=== PATIENT | male | born 1965 | race Caucasian/White ===

== ENCOUNTER → 2018-04-15 14:50 | Outpatient (CLI) | payer OTHER, SELFPAY ==
--- NOTE | 2018-04-15 14:56 | RAD_ITS ---
STUDY: X-RAY - ABDOMEN/PELVIS REASON FOR EXAM: Male, 53 years old. Left upper quadrant pain radiating to back TECHNIQUE: Two AP supine views of the abdomen and pelvis. COMPARISON: None. FINDINGS: Normal visualized lung bases. There is an unremarkable bowel gas pattern. There is no demonstrated free abdominal air. The visualized liver, spleen and kidneys are grossly normal in size and morphology. Normal soft tissue structures. Normal visualized osseous structures. RAD/Abdomen Single View IMPRESSION: Normal x-ray examination of the abdomen and pelvis. Electronically Signed: Jeremiah Restrepo MD at 22:58 EDT , Service support ,
[2018-04-15 17:48] LABS: Absolute Lymphocyte Count 2.17 X10^3/ul (0.83-4.51); Absolute Neutrophil Count 3.2 X10^3/uL (2.0-7.7); Basophil# 0.03 X10^3/uL; Basophil% 0.5 % (0-1); Eosinophil# 0.08 X10^3/uL; Eosinophils% 1.4 % (0-5); Hematocrit 43.5 % (40-54); Lymphocyte # 2.17 X10^3/ul (4.0); Lymphocyte % 36.7 % (19-41); Mean Corp Hgb Conc 34.5 g/gl (32-36); Mean Corpuscular Hgb 30.3 pg (27.0-32.0); Mean Corpuscular Volume 87.9 fL (80-94); Monocyte# 0.46 X10^3/uL; Monocyte% 7.8 % (0-10); Neutrophil # 3.16 X10^3/uL (2.7-7.7); Neutrophil % 53.3 % (47-70); Platelet Count 274 K/mm3 (150-450); RBC Distribution Width CV 12.8 % (11.6-14.6); RBC Distribution Width SD 41.1 fl (35.1-43.9); Red Blood Count 4.95 M/mm3 (4.6-6.2); White Blood Count 5.9 K/mm3 (4.4-11.0)
[2018-04-15 17:50] LABS: POSITIVE COUNT NO; POSITIVE DIFFERENTIAL NO; POSITIVE MORPHOLOGY NO
[2018-04-15 17:54] LABS: Anion Gap 8 (5-15); BUN 15 mg/dL (7-18); BUN/Creat Ratio 14.4 RATIO (10-20); Calcium,Total 9.1 mg/dL (8.5-10.1); Chloride 104 mmol/L (98-107); Creatinine, Serum 1.04 mg/dL (0.70-1.30); EST Glomerular Filtration Rate 79 mL/min (>60); Est Glom Filt Rate - Afr Amer 95 mL/min (>60); Glucose 92 mg/dL (74-106); Potassium 4.2 mmol/L (3.5-5.1); Sodium Level 141 mmol/L (136-145); T4 Free Direct 1.12 ng/dL (0.76-1.46); Thyroid Stim Hormone (TSH) 8.39 uIU/mL (0.358-3.74)
[2018-04-15 18:05] LABS: T3 Total - Triiodothyronine 1.23 ng/mL (0.6-1.81)
[2018-04-18 16:41] LABS: Thyroid Peroxidase AB > 600 IU/mL (0-34)
== END ==
PROVIDERS: Family Provider Family Medicine; PCP Family Medicine; Visit Provider Family Medicine
DX: R10.9 Unspecified abdominal pain (principal); R79.89 Other specified abnormal findings of blood chemistry
CPT/HCPCS: 36415; 74018; 80048; 84439; 84443; 84480; 85025; 86376

== ENCOUNTER → 2018-06-14 08:05 | Outpatient (CLI) | payer OTHER, SELFPAY ==
[2018-06-14 08:46] LABS: T4 Free Direct 1.42 ng/dL (0.76-1.46); Thyroid Stim Hormone (TSH) 1.27 uIU/mL (0.358-3.74)
== END ==
PROVIDERS: Family Provider Family Medicine; PCP Family Medicine; Visit Provider Family Medicine
DX: E03.9 Hypothyroidism, unspecified (principal)
CPT/HCPCS: 84439; 84443

== ENCOUNTER → 2020-03-30 15:07 | Outpatient (CLI) | payer OTHER, SELFPAY ==
--- NOTE | 2020-03-30 15:11 | RAD_ITS ---
STUDY: X-RAY - SACRUM/COCCYX REASON FOR EXAM: Male, 55 years old. pain in the tailbone, no injury TECHNIQUE: 3 view(s) of the sacrum and coccyx were obtained. COMPARISON: None. FINDINGS: Normal bilateral sacroiliac joints. Normal visualized sacral ala and fused sacral bodies. Normal sacrococcygeal junction with a normal angulation. Normal coccygeal segments. Pelvic phleboliths. Degenerative hip changes. RAD/Sacrum-Coccyx min 2 Views IMPRESSION: No sacrococcygeal abnormality is visible. Electronically Signed: Dharmesh Laboy MD at 18:14 EDT Tel , Service support ,
== END ==
PROVIDERS: PCP Family Medicine; Referring Provider Family Medicine; Visit Provider Family Medicine
DX: M53.3 Sacrococcygeal disorders, not elsewhere classified (principal)
CPT/HCPCS: 72220

== ENCOUNTER → 2020-06-18 10:13 | Outpatient (CLI) | payer OTHER, SELFPAY ==
[2020-06-18 12:34] LABS: Hemoglobin A1c 5.9 % (3.8-5.6)
[2020-06-24 22:09] LABS: HLA B27 Negative (.)
== END ==
PROVIDERS: PCP Family Medicine; Visit Provider Family Medicine
DX: M54.5 Low back pain (principal); R73.01 Impaired fasting glucose
CPT/HCPCS: 36415; 81374; 83036

== ENCOUNTER → 2020-07-14 15:22 | Outpatient (CLI) | payer OTHER, SELFPAY ==
[2020-07-01 14:12] VITALS: BMI 31.3
--- NOTE | 2020-07-14 15:22 | MRI_ITS ---
HISTORY: nontraumatic coccydynia ADDITIONAL HISTORY: None provided. COMPARISON: Sacrum coccyx radiographs 03/30/2020. TECHNIQUE: Multiplanar, multisequence MRI of the pelvis without contrast FINDINGS: BLADDER: Not well distended with mildly prominent wall with some trabeculation. REPRODUCTIVE ORGANS: Mild prostate enlargement measuring 3.6 x 4.8 x 3.9 cm. Seminal vesicle cysts. IMAGED GI TRACT: Colonic diverticulosis. ABDOMINAL WALL: Unremarkable. LYMPH NODES: No pathologic appearing adenopathy. FREE FLUID: None. SKELETON AND SOFT TISSUES: No focal bone lesion. Fatty marrow replacement noted in the lower sacrum and coccyx. No evidence of fracture. Degenerative changes in the visible spine; refer to lumbar spine MRI report. Unremarkable sacroiliac joints. MRI/Pelvis (Routine) IMPRESSION: No pelvic abnormality detected to explain the patient's symptoms. Incidental findings as detailed. at 0151 Reported and signed by: Lizbeth Zaragoza MD Electronically Signed: Lizbeth Zaragoza MD at 1:51 EDT Tel , Service support ,
--- NOTE | 2020-07-14 15:22 | MRI_ITS ---
STUDY: MRI LUMBAR SPINE WITHOUT CONTRAST REASON FOR EXAM: Male, 55 years old. back pain, bilat leg pain, coccyx pain TECHNIQUE: Standardized fat and water weighted pulse sequences were obtained in the sagittal and axial planes. COMPARISON: None FINDINGS: T12-L1: Normal endplates. Normal disc height, hydration and morphology. Normal bilateral facet joints. Normal central canal and bilateral lateral recesses. Normal bilateral intervertebral neural foramina. Normal lumbar lordosis. There is no substantial scoliosis. Normal conus medullaris that terminates at the L1-2 level. L5 hemangioma. L1-2: Normal endplates. Normal disc height, hydration and morphology. Normal bilateral facet joints. Normal central canal and bilateral lateral recesses. Normal bilateral intervertebral neural foramina. L2-3: Normal endplates. Normal disc height, hydration and morphology. Normal bilateral facet joints. Normal central canal and bilateral lateral recesses. Normal bilateral intervertebral neural foramina. L3-4: Bulging annulus with mild right foraminal stenosis. L4-5: Bulging annulus and left foraminal annular fissure with moderate left and mild right foraminal stenoses. L5-S1: Bulging annulus, central disc protrusion and bilateral facet hypertrophy without compressive sequelae. Normal visualized sacral ala. Normal visualized paraspinous soft tissue structures. MRI/Spine Lumbar (Routine) IMPRESSION: Multilevel degenerative disease as described. Moderate left foraminal stenosis at the L4-5 level. Electronically Signed: Dharmesh Laboy MD at 17:29 EDT Tel , Service support ,
== END ==
PROVIDERS: PCP Family Medicine; Referring Provider Physician Assistant; Visit Provider Physician Assistant
DX: M53.3 Sacrococcygeal disorders, not elsewhere classified (principal)
CPT/HCPCS: 72148; 72195

== ENCOUNTER → 2021-07-07 09:16 | Outpatient (CLI) | payer OTHER, SELFPAY ==
[2021-07-07 09:48] LABS: T4 Free Direct 1.32 ng/dL (0.76-1.46); Thyroid Stim Hormone (TSH) 1.99 uIU/mL (0.358-3.74)
== END ==
PROVIDERS: PCP Family Medicine; Visit Provider Family Medicine
DX: Z12.5 Encounter for screening for malignant neoplasm of prostate (principal); E03.9 Hypothyroidism, unspecified
CPT/HCPCS: 36415; 84153; 84439; 84443; G0103

== ENCOUNTER → 2022-07-12 | Outpatient (CLI) | payer OTHER, SELFPAY ==
[2022-07-12 08:36] LABS: T4 Free Direct 1.45 ng/dL (0.76-1.46); Thyroid Stim Hormone (TSH) 2.73 uIU/mL (0.358-3.74)
== END | disposition home or self-care (01) ==
LOC: LAB 07:37
PROVIDERS: PCP Family Medicine; Visit Provider Family Medicine
DX: E03.9 Hypothyroidism, unspecified (principal)
CPT/HCPCS: 36415; 84439; 84443

== ENCOUNTER 2022-08-28 15:30 | Outpatient (RCR) | payer OTHER, SELFPAY ==
--- NOTE | 2022-03-29 16:20 | HP.OTEVAL ---
Patient's Visit Information TORRI GOMEZ is a 57 year old M, referred to Occupational Therapy by Dr. Kade Smith DO, with a diagnosis of right lateral epi. Date of Evaluation: 03/29/22 Occupational Therapist: RENNY Hightower/David, CHT - Subjective This 57 year old male was seen for OT eval with dx of right pt states he noticed pain about 8 weeks ago or longer-especially when he was trying to lift a gallon of milk from the refrigerator. Pt states he does have more pain with pulling weeds. He is not sure what initial cause was but feels the way he caps or uncapping tubes at work may be a issue. did see 03-23-22 and did receive a cortisone shot -. 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 with ADls and IADls by d.c Goal:: pt will report right elbow pain no greater than 2/10 with use of UE with ADLs and IADLs by d.c Goal:: pt will demo understanding of lat. epi precautions for ADLs and IADls to limit joint stress by 4th visit. Goal:: pt will report he is ind. with pulling weeds and report return to lifting items as a gallon of milk from refrigerator by adriannec - Rehabilitation General Assessment: pt demo with positive right later. epicondylitis. This limits pts ind. with ADLs and IADLs. pt would benefit from skilled OT services 1-2x week for 4-6 weeks to decrease pain and return pt to PLOF with ADls and IADLS. Today therapist ed. pt on later epi stretches phase I,II and will transition to eccentric ex next visit- all to increase pts ind. with ADLS and return pt to PLOF. pt demo understanding and agree to POC. Rehabilitation Potential: Good - Visit Plan TEXT: Thank you for the opportunity to evaluate your patient. For Medicare and Medicare HMO plans, please review the plan of care and approve it. It will need to be FAXED BACK to us at [phone] for Medicare purposes. Please let me know if there are questions or concerns regarding this plan of care. Physician Signature: Date:
--- NOTE | 2022-05-02 08:40 | HP.OTREVAL ---
Dr. Kade Smith, DO, It has been my pleasure to treat TORRI GOMEZ over the last 7 visits for right lateral epi. Please see the progress note below for an update on the occupational therapy plan of care! Subjective: pt arrives states he notices pain with position and grasp - pt states he noticed more pain with positional reach- and has tried to limit Objective/Function: elbow at 90* 55#. elbow straight 20# (pain 4-5/10). therapist advised pt to start using wrist ( cock-up) at night and with daily mtg. pt may benefit from radial pulse wave treatment- if you agree please provide conformation Plan Plan: pt 6 weeks from cortisone shot- and due to increase in pain with ADls- may benefit from radial pulse wave tx- if you agree please let me know and we can proceed until then pt to. cont. with HEP. eccentric. and isometric with biceps/triceps and shoulder Goals - Goals Patient Goals: Regain Strength, Decrease Pain, Use Hand/Wrist/Arm Normally Again, Be More Independent in ADLS Goal:: pt will demo a increase in right relationship specialist strength to 85# or greater with elbow straight and bent with pain no greater than 2/10 to increase pts ind. with ADls and IADls by d.c Goal:: pt will report right elbow pain no greater than 2/10 with use of UE with ADLs and IADLs by d.c Goal:: pt will demo understanding of lat. epi precautions for ADLs and IADls to limit joint stress by 4th visit. Goal:: pt will report he is ind. with pulling weeds and report return to lifting items as a gallon of milk from refrigerator by d.c Anticipated Interventions Anticipated Interventions: A/AAROM/PROM, Strengthening, Triggerpoint Release, Modalities, Orthoses, Joint Protection/Energy Conservation, Ergonomic Education, Education re assistive Equipment, Education re Diagnosis, Home Program Please do not hesitate to contact me at [phone] by phone or if you have questions or concerns regarding this new plan of care! Sincerely, Whit Sanderson, OTR/L, CHT
== END 2022-08-28 19:00 | disposition home or self-care (01) ==
LOC: OT 15:30
PROVIDERS: PCP Family Medicine; Referring Provider Family Medicine; Visit Provider Family Medicine
DX: M77.11 Lateral epicondylitis, right elbow (principal)
CPT/HCPCS: 97035; 97110; 97140; 97166; 97530

== ENCOUNTER 2022-10-30 15:26 | Outpatient (RCR) | payer OTHER, SELFPAY ==
--- NOTE | 2022-10-30 16:48 | HP.OTDCSUM ---
It has been my pleasure to treat TORRI GOMEZ under orders from Dr. Kade Smith, DO, for the diagnosis of right lat. epi for a total of 13 visit(s). Please see the following information for a summary of their discharge status. % Improvement: 70 Patient Goals: Decrease Pain, Use Hand/Wrist/Arm Normally Again, Be More Independent in ADLS, Other Other: radial pulse wave Plan: D/C Discharge Comments: pt was seen for 13 OT sessions for right lat. epi. pt was ed. on lateral epi precautions, eccentric ex and underwent radial pulse wave treatment. pt made gains in decreasing pts pain and pt agree with HEP and D/c. If there are questions or concerns regarding this patient's occupational therapy, please fell free to call me at [phone]. Thank you for the referral of this patient. Sincerely, Whit Sanderson, OTR/L, CHT
== END 2022-10-30 19:00 | disposition home or self-care (01) ==
LOC: OT 15:26
PROVIDERS: PCP Family Medicine; Referring Provider Family Medicine; Visit Provider Family Medicine
DX: M77.11 Lateral epicondylitis, right elbow (principal)
CPT/HCPCS: 97530

== ENCOUNTER → 2023-02-01 | Outpatient (CLI) | payer OTHER, SELFPAY ==
[2023-02-01 08:35] LABS: Hemoglobin A1c 5.8 % (3.8-5.6)
[2023-02-01 08:37] LABS: Cholesterol 158 mg/dL (200); Glucose 106 mg/dL (74-106); High Density Lipoprotein 46 mg/dL; Triglycerides 145 mg/dL; Very Low Density Lipoprotein 29 mg/dL (5-40)
== END | disposition home or self-care (01) ==
LOC: LAB.FUTURE 06:59 → LAB 06:59
PROVIDERS: PCP Family Medicine; Visit Provider Family Medicine
DX: E78.5 Hyperlipidemia, unspecified (principal); R73.01 Impaired fasting glucose
CPT/HCPCS: 36415; 80061; 82947; 83036

== ENCOUNTER → 2023-06-08 | Outpatient (CLI) | payer OTHER, SELFPAY ==
[2023-06-08 17:52] LABS: PSA,Total - Annual Screen 2.11 ng/mL (0.00-4.00)
== END | disposition home or self-care (01) ==
LOC: LAB 15:32
PROVIDERS: PCP Family Medicine; Referring Provider Family Medicine; Visit Provider Family Medicine
DX: E03.9 Hypothyroidism, unspecified (principal); Z12.5 Encounter for screening for malignant neoplasm of prostate
CPT/HCPCS: 36415; 84153; 84443; G0103

== ENCOUNTER → 2024-08-20 | Outpatient (CLI) | payer OTHER, SELFPAY ==
[2024-08-20 12:09] LABS: Absolute Lymphocyte Count 2.06 X10^3/uL (0.83-4.51); Absolute Neutrophil Count 3.5 X10^3/uL (2.0-7.7); Basophil# 0.06 X10^3/uL; Basophil% 0.9 % (0-1); Eosinophil# 0.14 X10^3/uL; Eosinophils% 2.2 % (0-5); Hematocrit 44.6 % (40-54); Hemoglobin 15.3 g/dL (13.0-16.5); Lymphocyte # 2.06 X10^3/ul (0.83-4.51); Mean Corp Hgb Conc 34.3 g/dL (32-36); Mean Corpuscular Hgb 30.2 pg (27.0-32.0); Mean Platelet Vol. 10.6 fl (6.2-12.0); Monocyte# 0.66 X10^3/uL; Monocyte% 10.3 % (0-10); NRBC Flagged by Analyzer 0 % (0-5); Neutrophil # 3.49 X10^3/uL (2.7-7.7); Neutrophil % 54.3 % (47-70); Platelet Count 282 K/mm3 (150-450); RBC Distribution Width CV 12.8 % (11.6-14.6); RBC Distribution Width SD 41.1 fl (35.1-43.9); Red Blood Count 5.07 M/mm3 (4.6-6.2); White Blood Count 6.4 K/mm3 (4.4-11.0)
[2024-08-20 12:45] LABS: ALB/GLOB Ratio 1.1 RATIO (0.9-2.4); AST(SGOT) 23 U/L (15-37); Alanine Aminotransfer ALT/SGPT 53 U/L (16-61); Alkaline Phosphatase 90 U/L (45-117); Anion Gap 5 (5-15); BUN 15 mg/dL (7-18); BUN/Creat Ratio 13.3 RATIO (10-20); Calcium,Total 9.2 mg/dL (8.5-10.1); Chloride 104 mmol/L (98-107); Cholesterol 174 mg/dL (200); Creatinine, Serum 1.13 mg/dL (0.70-1.30); EST Glomerular Filtration Rate 70 mL/min (>60); Est Glom Filt Rate - Afr Amer 85 mL/min (>60); Globulin 3.5 g/dL (2.2-4.2); Glucose 109 mg/dL (74-106); High Density Lipoprotein 48 mg/dL; PSA,Total - Annual Screen 2.24 ng/mL (0.00-4.00); Potassium 4.2 mmol/L (3.5-5.1); Protein, Total 7.5 g/dL (6.4-8.2); Sodium Level 137 mmol/L (136-145); Triglycerides 219 mg/dL; Very Low Density Lipoprotein 44 mg/dL (5-40)
== END | disposition home or self-care (01) ==
LOC: BFHLAB 08:56
PROVIDERS: PCP Family Medicine; Referring Provider Family Medicine; Visit Provider Family Medicine
DX: Z00.00 Encounter for general adult medical examination without abnormal findings (principal); E03.9 Hypothyroidism, unspecified
CPT/HCPCS: 36415; 80053; 80061; 84153; 84439; 84443; 85025; G0103

== ENCOUNTER → 2024-09-01 | Outpatient (CLI) | payer OTHER, SELFPAY ==
--- NOTE | 2024-09-01 16:24 | STRESSREP ---
Stress Test Report Exercise stress test. 59-year-old man with a history of chest pain Stress protocol: Resting EKG demonstrates normal sinus rhythm with a rate of 71 bpm resting blood pressure is 140/72 mmHg. The patient exercised according to the regular [place] protocol for a total duration of 7 minutes and 15 seconds attaining a maximum heart rate of 155 bpm which was 97% of maximum predicted heart rate; the maximum workload was 10.1 metabolic equivalents. At rest there were no ST or T wave changes noted to suggest ischemia and at peak exercise upsloping ST changes only were noted which did not meet the criteria for ischemia. The patient did experience mild to moderate chest pressure at peak exercise with fatigue and shortness of breath and this dissipated on discontinuation of the test. The peak blood pressure was 172/74 mmHg. Rate-pressure product was 24,500. Conclusion: Exercise stress test with no EKG criteria for ischemia at a high workload. Chest discomfort suggestive of clinical angina noted at peak exercise
== END | disposition home or self-care (01) ==
PROVIDERS: PCP Family Medicine; Referring Provider Family Medicine; Visit Provider Family Medicine
DX: R07.9 Chest pain, unspecified (principal)
CPT/HCPCS: 93017

== ENCOUNTER → 2024-10-22 | Outpatient (CLI) | payer OTHER, SELFPAY ==
--- NOTE | 2024-10-22 12:45 | CT_ITS ---
STUDY: CT CHEST WITH CONTRAST REASON FOR EXAM: Male, 59 years old. CHEST PAIN, GARCIA, TREADMILL EKG STRESS TEST WITH ANGINA RADIATION DOSAGE (If Supplied By Facility): CTDIvol = ( 55.87 ) mGy, DLP = ( 2083.91 ) mGycm TECHNIQUE: Transaxial imaging was performed following intravenous administration of IV 95mL Isovue-370. Cardiac over read examination. Individualized dose optimization techniques were used for this CT. COMPARISON: Comparison is made with prior study dated July 27, 2016. FINDINGS: CHEST There is a 4.1 cm x 2 cm bulla in the medial aspect of the right upper lobe. There is no demonstrated pleural abnormality. Normal heart and pericardium. No coronary artery calcification is seen. Normal mediastinum. Normal hilar regions. Normal unenhanced pulmonary arteries. Normal aorta arch and descending thoracic aorta. Normal osseous structures. Diffuse fatty infiltration of the liver. CT/Limited Chest CT Cardiac Only IMPRESSION: No evidence of coronary artery calcification. Electronically Signed: Sravan Alonzo MD at 14:32 EST ,
[2024-10-22 12:49] VITALS: BP 137/80; PULSE 73; RESP 16; TEMP 36; O2SAT 95; BMI 33.6
[2024-10-22 12:58] VITALS: BP 137/80; PULSE 72
[2024-10-22] MEDS: Nitroglycerin SL (ED/IMG/CATH) 0.4 MG TABLET SL (12:58)
[2024-10-22 13:03] VITALS: BP 135/76; PULSE 73; RESP 16; O2SAT 95
[2024-10-22 13:08] LABS: CREATININE FINGERSTICK < 1.0 mg/dL (0.70-1.30); EGFR FINGERSTICK > 60.0000 mL/min (>60)
--- NOTE | 2024-10-23 07:43 | CCTA.WCONT ---
CCTA w/Cont Coronary Arteries Date of Study:: 10/22/24 Chest pain Coronary Calcium Scoring: High-resolution Computed Tomographic imaging of the chest was performed on [10/22/2024], with particular attention paid to the coronary arteries. Intravenous contrast agent was administered per protocol and images reconstructed and displayed. LEFT MAIN CORONARY ARTERY: Arises from the left coronary cusp. No significant stenosis is noted in this vessel. [] LEFT ANTERIOR DESCENDING CORONARY ARTERY: Arises from the left main coronary artery. The vessel coursed towards the apex of the ventricle. No significant atherosclerotic plaquing is noted. [] LEFT CIRCUMFLEX CORONARY ARTERY: Arises from the left main coronary artery. It is a nondominant vessel. There is mild atherosclerotic plaquing noted. [] RIGHT CORONARY ARTERY: Arises from the right coronary cusp. The proximal portion appears to be free of significant disease. The mid to distal portion has an area of soft plaquing which appears to encroach in the lumen to a significant degree suggesting a moderate to moderately severe stenotic lesion. [] THORACIC AORTA: [] PULMONARY ARTERY: [] LEFT ATRIUM/APPENDAGE: [] MITRAL VALVE: [] AORTIC VALVE: [] LEFT VENTRICLE: [] CORONARY CALCIUM SCORE: Not performed CT angiogram with evidence of moderate soft plaquing with at least moderate stenosis noted in the right coronary artery. []
== END | disposition home or self-care (01) ==
LOC: CT 12:28
PROVIDERS: PCP Family Medicine; Referring Provider Family Medicine; Visit Provider Family Medicine
DX: R07.9 Chest pain, unspecified (principal); R06.09 Other forms of dyspnea
CPT/HCPCS: 75574; 76380; Q9967

== ENCOUNTER → 2024-11-26 | Outpatient (CLI) | payer OTHER, SELFPAY ==
[2024-11-26 11:36] LABS: Absolute Lymphocyte Count 1.63 X10^3/uL (0.83-4.51); Absolute Neutrophil Count 7.3 X10^3/uL (2.0-7.7); Basophil# 0.04 X10^3/uL; Basophil% 0.4 % (0-1); Eosinophil# 0.08 X10^3/uL; Eosinophils% 0.8 % (0-5); Hematocrit 44.6 % (40-54); Hemoglobin 15.1 g/dL (13.0-16.5); Lymphocyte # 1.63 X10^3/ul (0.83-4.51); Lymphocyte % 16.8 % (19-41); Mean Corp Hgb Conc 33.9 g/dL (32-36); Mean Corpuscular Hgb 29.6 pg (27.0-32.0); Mean Corpuscular Volume 87.5 fL (80-94); Mean Platelet Vol. 10.3 fl (6.2-12.0); Monocyte# 0.68 X10^3/uL; NRBC Flagged by Analyzer 0 % (0-5); Neutrophil # 7.25 X10^3/uL (2.7-7.7); Neutrophil % 74.7 % (47-70); Platelet Count 285 K/mm3 (150-450); RBC Distribution Width CV 12.5 % (11.6-14.6); RBC Distribution Width SD 39.8 fl (35.1-43.9); White Blood Count 9.7 K/mm3 (4.4-11.0)
[2024-11-26 12:11] LABS: Anion Gap 6 (5-15); BUN 15 mg/dL (7-18); BUN/Creat Ratio 14.4 RATIO (10-20); Calcium,Total 9.2 mg/dL (8.5-10.1); Chloride 104 mmol/L (98-107); Creatinine, Serum 1.04 mg/dL (0.70-1.30); EST Glomerular Filtration Rate 77 mL/min (>60); Est Glom Filt Rate - Afr Amer 93 mL/min (>60); Glucose 112 mg/dL (74-106); Potassium 4.3 mmol/L (3.5-5.1); Sodium Level 138 mmol/L (136-145)
== END | disposition home or self-care (01) ==
LOC: LAB 11:02
PROVIDERS: PCP Family Medicine; Referring Provider Internal Medicine Cardiovascular Disease; Visit Provider Internal Medicine Cardiovascular Disease
DX: R07.89 Other chest pain (principal)
CPT/HCPCS: 36415; 80048; 85025

== ENCOUNTER 2024-11-28 07:22 | Day surgery (SDC) | payer OTHER, SELFPAY ==
[2024-11-27 08:06] VITALS: BMI 33.3
--- NOTE | 2024-11-28 08:59 | CL.D_ITS ---
Patient Name: TORRI GOMEZ Study Date: 11/28/2024 Performing: Abdoul Gonzalez MD Ht: 67 inches 170.18 cm : 1965 Wt: 213.01 lbs 96.62 kg Age: 59 Gender: male BSA: 2.08 PROCEDURE(S) PERFORMED [id number])LHC/COR/LV CLINICAL PROFILE AND INDICATIONS Indications: Suspected CAD Heart Failure: None Stress/Imaging Date: 09/07/24 CAD Presentations: Stable angina. CONCLUSIONS Normal coronary arteries Normal LV size, wall motion,and systolic function RECOMMENDATIONS Medical therapy DESCRIPTION OF PROCEDURE The patient arrived to the procedure lab. The risks and benefits of the procedure as well as a full description of our services here and current unavailability of surgical backup were fully explained to the patient and/or their significant other prior to the catheterization. The Timeout was completed, verifying the correct patient and procedure. The patient's procedural site was prepped and draped in the usual fashion. Local anesthetic was given subcutaneously to right radial region with Lidocaine 2%. Using a modified Seldinger technique, arterial access was obtained via the right radial artery, a 6Fr sheath was inserted. Right Coronary Artery selective angiography was then performed in multiple views using a 5 Fr. 4.0 [place] catheter. Left Coronary Artery selective angiography was performed in multiple views using a 5 Fr. 4.0 [place] catheter. Left Ventriculography was performed in [place] projection using a 5 Fr. Pigtail catheter. LV to AO pullback pressures were then recorded.The arterial sheath was pulled and a TR Band was applied for hemostasis CORONARY ANGIOGRAPHY DOMINANCE: Right Dominant LEFT HEART ASSESSMENT Left Ventricular Ejection Fraction: by LV Gram 65 % Normal LV wall motion Normal Left Ventricular systolic function LEFT MAIN: Angiographically normal LEFT ANTERIOR DESCENDING ARTERY: Angiographically normal CIRCUMFLEX ARTERY: Angiographically normal RIGHT CORONARY ARTERY: No significant disease noted COMPLICATIONS No Complications PROCEDURE MEDICATIONS Versed 1 mg IV Fentanyl 50 mcg IV Versed 1 mg IV Oxygen: 2 L/min via nasal cannula Heparin given IA 11/28/2024 08:28:32 Verapamil 2.5mg, Ntg 100mcgs, 3000 units of Heparin given IA 11/28/2024 08:28:32 SUMMARY OF HEMODYNAMIC DATA Time AIR REST ECG 07:34:42 AO 112/67 (88) SA 08:40:14 LV 90/0, 10 08:45:21 LV 99/-2, 6 08:45:29 LV 89/0, 8 08:46:15 LVp 88/-3, 6 08:46:20 AOp 110/61 (84) 08:46:25 08:57:32 Signed By Abdoul Gonzalez MD On 11/28/2024 08:58:36 Abdoul Gonzalez MD
== END 2024-11-28 10:33 | disposition home or self-care (01) ==
PROVIDERS: PCP Family Medicine; Visit Provider Internal Medicine Cardiovascular Disease
DX: I25.118 Atherosclerotic heart disease of native coronary artery with other forms of angina pectoris (principal); E03.9 Hypothyroidism, unspecified; J45.909 Unspecified asthma, uncomplicated; Z79.82 Long term (current) use of aspirin; Z79.899 Other long term (current) drug therapy; Z87.891 Personal history of nicotine dependence
CPT/HCPCS: 93458; 99152; 99153; Q9967; C1769; C1894

== ENCOUNTER → 2025-08-28 | Outpatient (CLI) | payer OTHER, SELFPAY ==
[2025-08-28 13:00] LABS: AST(SGOT) 36 U/L (<=37); Alanine Aminotransfer ALT/SGPT 74 U/L (<=46); Albumin, Serum 4.4 g/dL (3.4-4.8); Alkaline Phosphatase 94 U/L (40-129); Bilirubin, Direct 0.22 mg/dL (0.00-0.30); Cholesterol 143 mg/dL (<=200); Globulin 3.2 g/dL (2.2-4.2); Low Density Lipoprotein Calc. 80 mg/dL; PSA,Total - Annual Screen 3.38 ng/mL (0.02-4.00); Triglycerides 128 mg/dL; Very Low Density Lipoprotein 26 mg/dL (5-40); cholesterol:hdl ratio screen 3.59
== END | disposition home or self-care (01) ==
LOC: MTLAB 09:55
PROVIDERS: PCP Family Medicine; Referring Provider Family Medicine; Visit Provider Family Medicine
DX: Z00.00 Encounter for general adult medical examination without abnormal findings (principal); E03.9 Hypothyroidism, unspecified; Z12.5 Encounter for screening for malignant neoplasm of prostate
CPT/HCPCS: 36415; 80061; 80076; 84153; 84439; 84443; G0103